=== PATIENT | female | born 1985 | race Caucasian/White ===

== ENCOUNTER 2019-11-23 00:59 | Emergency (ER) | payer MEDICAID ==
[~2019-11-23] VITALS: Ht 165.1 cm; Wt 118.8 kg
[~2019-11-23 00:59] MED LIST: APAP/HYDROCODON1 T13 PO; COL100 PO; LEVAQUIN750 MG PO; PRENATAL VITAMI1 TA4 PO
[2019-11-23 01:15] VITALS: Ht 165.1 cm; Wt 118.8 kg
[2019-11-23 02:00] VITALS: BP 127/91
== END 2019-11-23 01:59 | disposition home or self-care (01) ==
LOC: ED 00:59
DX: S60.562A Insect bite (nonvenomous) of left hand, initial encounter (principal); Z98.890 Other specified postprocedural states; Z88.8 Allergy status to other drugs, medicaments and biological substances; W57.XXXA Bitten or stung by nonvenomous insect and other nonvenomous arthropods, initial encounter; Y93.89 Activity, other specified; Y92.89 Other specified places as the place of occurrence of the external cause; Y99.8 Other external cause status

== ENCOUNTER 2020-01-17 02:38 | Emergency (ER) | payer MEDICAID ==
[~2020-01-17] VITALS: Ht 165.1 cm; Wt 122.9 kg
[2020-01-17 02:54] VITALS: Ht 165.1 cm; Wt 122.9 kg
[2020-01-17 03:52] LABS: BASOPHIL % 1.3 % (0-2); PLATELET COUNT 239 x10^3mcL (130-400); RED CELL DISTRIBUTION WIDTH 12.4 % (11.5-14.5)
[2020-01-17 04:43] LABS: ALBUMIN 3.5 g/dL (3.4-5.0); ALKALINE PHOSPHATASE 60 U/L (46-116); ALT/SGPT 76 U/L (14-59); AST/SGOT 28 U/L (15-37); BILIRUBIN TOTAL 0.4 mg/dL (0.20-1.00); CALCIUM 8.7 mg/dL (8.5-10.1); CARBON DIOXIDE 27.1 mmol/L (21-32); CHLORIDE SERUM 104 mmol/L (98-107); CREATININE SERUM 0.7 mg/dL (0.6-1.0); GFR1 > 60 mL/min; GLUCOSE SERUM 117 mg/dL (74-106); LIPASE 95 IU/L (73-393); POTASSIUM SERUM 3.7 mmol/L (3.5-5.1); SODIUM SERUM 137 mmol/L (136-145); TOTAL PROTEIN, SERUM 7.3 g/dL (6.4-8.2)
[2020-01-17 05:58] VITALS: BP 128/80
== END 2020-01-17 05:58 | disposition home or self-care (01) ==
LOC: ED 02:38
PROVIDERS: Emergency Medicine
DX: K29.70 Gastritis, unspecified, without bleeding (principal); Z98.890 Other specified postprocedural states; Z88.8 Allergy status to other drugs, medicaments and biological substances

== ENCOUNTER 2020-01-22 15:52 | Emergency (ER) | payer MEDICAID ==
[~2020-01-22] VITALS: Ht 165.1 cm; Wt 122.5 kg
[2020-01-22 16:07] VITALS: Ht 165.1 cm; Wt 122.5 kg
[2020-01-22 20:07] VITALS: BP 131/95
== END 2020-01-22 20:07 | disposition home or self-care (01) ==
LOC: ED 15:52
DX: L02.211 Cutaneous abscess of abdominal wall (principal); Z88.8 Allergy status to other drugs, medicaments and biological substances
CPT/HCPCS: J2001